=== PATIENT | female | born 1940 | race Asian ===

== ENCOUNTER 2018-07-08 06:58 | Inpatient (IN) | payer BC ==
[~2018-07-08] VITALS: Ht 157.5 cm; Wt 51.5 kg
[2018-07-08 07:11] VITALS: BP_SYST 154
--- NOTE | 2018-07-08 07:11 | NUR ---
Patient to ER bed 7 to gown for evaluation. Side rails up.
--- NOTE | 2018-07-08 07:15 | NUR ---
patient arrived AOx4 from home with c/o off and on abd pain and rectal bleeding x 1am this morning. patient has normal active bowel sounds and no abd pain with palpation. Patient denies n/v/d. Patient has never had this before. no other complaint or injury at this time.
--- NOTE | 2018-07-08 07:20 | NUR ---
ER at bedside examining patient.
--- NOTE | 2018-07-08 07:29 | NUR ---
Medication reconciliation completed with information provided by patient. Any prior medication reconciliation on file was reviewed and corrected.
--- NOTE | 2018-07-08 07:30 | NUR ---
patient sent to CT for scan in stable condition.
[2018-07-08] MEDS ORDERED: FERR325T22 PO (07:34)
[2018-07-08] MEDS ORDERED: LACT1CAP69 PO (07:34)
[2018-07-08] MEDS ORDERED: LOSA1TAB40 PO (07:34)
[2018-07-08] MEDS ORDERED: POTA8TAB4 PO (07:34)
[2018-07-08] MEDS ORDERED: SIMV10TA6 PO (07:34)
[2018-07-08] MEDS ORDERED: AMLO5TAB92 PO (07:34)
[2018-07-08 08:06] LABS: BASOPHILS % (AUTO) 0.7 % (0.0-2.0); EOSINOPHILS # (AUTO) 0.1 K/uL (0.0-0.4); EOSINOPHILS % (AUTO) 1.7 % (0.0-4.0); HEMATOCRIT 38.7 % (36-48); HEMOGLOBIN 12.5 g/dL (12.0-16.0); LYMPHOCYTES # (AUTO) 1.8 K/uL (1.0-5.5); LYMPHOCYTES % (AUTO) 36.1 % (20.5-51.5); MEAN CORPUSCULAR HEMOGLOBIN 28 pg (27-31); MEAN CORPUSCULAR HGB CONC 32 % (32-36); MEAN CORPUSCULAR VOLUME 86 fL (79.0-98.0); MONOCYTES # (AUTO) 0.3 K/uL (0.0-1.0); MONOCYTES % (AUTO) 6.2 % (1.7-9.3); NEUTROPHILS # (AUTO) 2.8 K/uL (1.8-7.7); NEUTROPHILS % (AUTO) 55.3 % (40.0-70.0); PLATELET COUNT (AUTO) 337 K/uL (130-430); RED BLOOD CELL COUNT(AUTO) 4.48 MIL/uL (4.2-6.2); RED CELL DISTRIBUTION WIDTH 16.9 % (9.0-15.0)
[2018-07-08 08:22] LABS: ANION GAP 6 (5-15); CHLORIDE 104 mmol/L (98-107); CREATININE 0.52 mg/dL (0.55-1.30); GLUCOSE 91 mg/dL (70-99); POTASSIUM 3.6 mmol/L (3.5-5.1); SODIUM SERUM 142 mmol/L (136-145); UREA NITROGEN, BLOOD 18 mg/dL (8-21)
[2018-07-08 08:28] LABS: ALANINE AMINOTRANSFERASE 16 U/L (12-78); ALBUMIN 3.3 g/dL (3.4-4.8); ASPARTATE AMINOTRANSFERASE 13 U/L (10-37); LIPASE 54 U/L (73-393); TOTAL BILIRUBIN 0.4 mg/dL (0.0-1.0)
[2018-07-08 08:33] LABS: INR 0.9 (0.8-1.2); PROTHROMBIN TIME 9.2 SECS (9.5-12.5)
--- NOTE | 2018-07-08 08:33 | NUR ---
patient returned to bed in stable condition.
[2018-07-08 08:49] LABS: BILIRUBIN,URINE NEGATIVE (NEGATIVE); BLOOD, URINE 2+ (NEGATIVE); CLARITY/URINE HAZY (CLEAR); COLOR,URINE YELLOW (YELLOW); GLUCOSE,URINE NEGATIVE (NEGATIVE); KETONES,URINE NEGATIVE (NEGATIVE); LEUKOCYTE ESTERASE ,URINE 3+ (NEGATIVE); NITRITE, URINE POSITIVE (NEGATIVE); PROTEIN URINE TRACE (NEGATIVE)
[2018-07-08] MEDS ORDERED: SULFAMETHOXAZOLE/TRIMETHOPR DS 1 TABLET PO ONE (09:00)
[2018-07-08 09:05] LABS: BACTERIA,URINE MANY /HPF (None Seen); WBC,URINE 20-50 /HPF (0-3)
[2018-07-08] MEDS ORDERED: MAGNESIUM CITRATE 300 ML ORAL SOLUTION PO ONE (09:15)
--- NOTE | 2018-07-08 09:39 | NUR ---
Patient will be admitted to [facility]. Admitted to Med/Surg unit. Will go to room 130A. Belongings list completed. Summary report printed. Report will be given at bedside.
[2018-07-08] MEDS ORDERED: PANTOPRAZOLE SODIUM 40 MG/VIAL (PROTONIX) IVP ONE (09:45)
--- NOTE | 2018-07-08 09:45 | NUR ---
ADMIT NOTE Received pt from ER to the floor with a diagnosis of GI BLEED. Admission process initiated. patient oriented to pain management, safety and call light-teach back done.
--- NOTE | 2018-07-08 10:00 | NUR ---
initial notes rec patient awake alert accompanied by daughter in law. ivl on the l ac intact. no infiltration noted. with on and off pain on the lower abdomen ,no bleeding noted so far. bed to the lowest position and side rails up and locked. call light within reached and knows when to call for assistance.
[2018-07-08 10:05] VITALS: BP_SYST 141
[2018-07-08] MEDS: NACL 0.9% 1,000 ML IV SCH ×2 (10:28→23:44)
[2018-07-08] MEDS ORDERED: VIT1TABL94 PO (10:31)
--- NOTE | 2018-07-08 10:43 | NUR ---
FAX [facility] Re: Medical disclosure info fax #[phone]
--- NOTE | 2018-07-08 11:37 | NUR ---
CONSULTATION PAGED/CALLED Reason for Consultation: GI BLEED Person Who was Notified: SPOKE WITH STARLA FROM [facility] Consulting Physician: SEGUNDO FLORES S Dormitory Maid Specialty: GI Ordering Physician:
[2018-07-08 12:58] VITALS: BP_SYST 137
--- NOTE | 2018-07-08 14:00 | NUR ---
rounds seen by dr garcia and with orders. resting comfortably . otherwise pt will call for assistance to the br.
[2018-07-08 14:27] LABS: HEMATOCRIT 35.5 % (36-48); HEMOGLOBIN 11.6 g/dL (12.0-16.0)
[2018-07-08 17:01] VITALS: BP_SYST 145
[2018-07-08] MEDS ORDERED: COMMUNICATION ORDER XX ONE (17:15)
[2018-07-08] MEDS ORDERED: BISACODYL 5 MG TABLET.DR (DULCOLAX) PO ONE (17:15)
--- NOTE | 2018-07-08 17:30 | NUR ---
rounds seen by dr alissa baird and order for colonoscopy in am.
[2018-07-08] MEDS ORDERED: GOLYTELY / COLYTE SOLUTION 4 LITERS PO ONE (18:00)
[2018-07-08 19:00] VITALS: BP_SYST 148
--- NOTE | 2018-07-08 19:00 | NUR ---
closing notes endorsed patient to mukesh zheng . for colonoscopy in am and instructed re npo and aware about it. bed to the lowestr position and side rails up and locked.call light within reached and knows when to call for assistance.
[2018-07-08 20:02] LABS: HEMATOCRIT 34.7 % (36-48); HEMOGLOBIN 11.3 g/dL (12.0-16.0)
--- NOTE | 2018-07-08 22:20 | NUR ---
Paged Dr. Clarke: Page Dr Clarke to let us know what time will be the colonoscopy tomorrow. Awaiting to call back.
--- NOTE | 2018-07-08 22:23 | NUR ---
PAGED PAGED DR. RAYMOND, SPOKE WITH IVAN.
--- NOTE | 2018-07-08 22:30 | NUR ---
Dr Rivera, production sanitizer for Dr Clarke called back: Dr. Rivera called back, asked him what time will be the colonoscopy tomorrow, stated at 0730. Coat Check Attendant made aware.
[2018-07-08] MEDS: PANTOPRAZOLE SODIUM 40 MG/VIAL (PROTONIX) IVP SCH (23:33)
[2018-07-08] MEDS: amLODIPine BESYLATE 5 MG TABLET PO SCH (23:34)
[2018-07-08 23:41] VITALS: BP_SYST 139
[2018-07-09 01:30] LABS: HEMATOCRIT 33.3 % (36-48)
--- NOTE | 2018-07-09 06:45 | NUR ---
pt.presents general status stable.respiratory status stable w/in the shift.pt.has submitted to the oral prep:golytely w/in the shift.pt.had presents multiple stools;pt.presented clear returns w/in the shift.pt.submitted to colonoscopy this am per . i witness the pt. sign the consent form.pt.presented general status stable.respiratory status stable.no c/o pain,nausea w/in the shift.abdomen discomfort soley.pt.capable to reposition self.pt.had utilized the bs to accomadate bm returns.call light/telephone w/in the reach of the pt.
[2018-07-09] MEDS ORDERED: SIMETHICONE 40 MG/0.6 ML ML ONE (06:50)
[2018-07-09] MEDS ORDERED: MIDAZOLAM HCL 5 MG/5 ML VIAL ONE (06:50)
[2018-07-09] MEDS: MIDAZOLAM HCL 5 MG/5 ML VIAL ONE ×2 (07:38→07:43)
[2018-07-09] MEDS: fentaNYL CITRATE/PF 100 MCG/2 ML AMP ONE ×2 (07:38→07:43)
--- NOTE | 2018-07-09 08:38 | NUR ---
RN Note Patient just returned from GI lab awake and in stable condition. Report received from [facility]y GI nurse.
[2018-07-09 08:40] LABS: HEMATOCRIT 35.9 % (36-48); HEMOGLOBIN 11.7 g/dL (12.0-16.0)
[2018-07-09 08:47] VITALS: BP_SYST 129
[2018-07-09] MEDS: PANTOPRAZOLE SODIUM 40 MG/VIAL (PROTONIX) IVP SCH (10:05)
[2018-07-09] MEDS: amLODIPine BESYLATE 5 MG TABLET PO SCH (10:05)
--- NOTE | 2018-07-09 10:32 | NUR ---
Rounds Patient is currently resting in bed. No signs of distress noted at the moment.
--- NOTE | 2018-07-09 12:41 | NUR ---
Rounds Patient tolerated her full liquid diet well. Does not report any abd pain or blood in the stool
[2018-07-09 12:53] VITALS: BP_SYST 124
[2018-07-09 13:37] LABS: HEMATOCRIT 37.9 % (36-48); HEMOGLOBIN 12.1 g/dL (12.0-16.0)
[2018-07-09] MEDS: NACL 0.9% 1,000 ML IV SCH (14:07)
--- NOTE | 2018-07-09 14:21 | NUR ---
Rounds Patient is resting in bed. Call light is within reach and bed is in the lowest position.
[2018-07-09 15:14] VITALS: BP_SYST 127
--- NOTE | 2018-07-09 16:00 | NUR ---
Transition of Care Note Patient given medication reconciliation form and D/C instructions. Exit Care provided. Patient verbalized understanding. MD discussed with patient the results and treatment provided. Ambulatory with steady gait for discharge to home. Patient in stable condition, ID band removed. IV catheter removed, intact and dressing applied, no active bleeding. Patient educated on pain management. All belongings sent with patient.
[2018-07-09 17:40] VITALS: BP_SYST 111
--- NOTE | 2018-07-14 14:40 | NUR ---
Discharge Follow Up Phone Call [employer] SPECIALIST phoned patient, . Patient stated she was doing okay. She has had a follow up appointment with her PCP, Dr Garza, on 07/13/18. She will follow up with Dr Abraham for biopsy results on 07/27/18. Patient had no questions or concerns.
== END 2018-07-09 16:00 | disposition home or self-care (01) | DRG 378 ==
LOC: SED 06:58 → SMU 09:31
PROVIDERS: ADMIT Internal Medicine Hospice and Palliative Medicine; ATTEND Internal Medicine Hospice and Palliative Medicine
PROC: 0DBN8ZX Excision of Sigmoid Colon, Via Natural or Artificial Opening Endoscopic, Diagnostic (ICD-10-PCS; principal; 2018-07-09 07:30)
DX: K57.31 Diverticulosis of large intestine without perforation or abscess with bleeding (principal); E44.1 Mild protein-calorie malnutrition; I10 Essential (primary) hypertension; K63.5 Polyp of colon; D64.9 Anemia, unspecified; Z85.048 Personal history of other malignant neoplasm of rectum, rectosigmoid junction, and anus; Z88.0 Allergy status to penicillin; Z79.899 Other long term (current) drug therapy; Z92.3 Personal history of irradiation
CPT/HCPCS: 36415; 45380; 71045; 80053; 81000-TC; 83605; 83690-TC; 85018-TC; 85025; 85610-TC; 87040-TC; 87086; 87186-TC; 88305; 93005; 99285; C9113; J2250; J3010; J7030

== ENCOUNTER 2019-01-24 18:20 | Inpatient (IN) | payer BC ==
[~2019-01-24] VITALS: Ht 157.5 cm; Wt 51.7 kg
[~2019-01-24 18:20] MED LIST: AMLO5TAB92 PO; FERR325T22 PO; LACT1CAP69 PO; LOSA1TAB40 PO; POTA8TAB4 PO; SIMV10TA6 PO; VIT1TABL94 PO
[2019-01-24 18:38] VITALS: BP_SYST 132
[2019-01-24 19:23] LABS: BASOPHILS % (AUTO) 0.8 % (0.0-2.0); EOSINOPHILS % (AUTO) 0.6 % (0.0-4.0); HEMATOCRIT 31.5 % (36-48); HEMOGLOBIN 10.3 g/dL (12.0-16.0); LYMPHOCYTES % (AUTO) 19.7 % (20.5-51.5); MEAN CORPUSCULAR HEMOGLOBIN 29 pg (27-31); MEAN CORPUSCULAR HGB CONC 33 % (32-36); MEAN CORPUSCULAR VOLUME 88 fL (79.0-98.0); MONOCYTES # (AUTO) 0.4 K/uL (0.0-1.0); MONOCYTES % (AUTO) 7.2 % (1.7-9.3); NEUTROPHILS # (AUTO) 3.7 K/uL (1.8-7.7); NEUTROPHILS % (AUTO) 71.7 % (40.0-70.0); PLATELET COUNT (AUTO) 486 K/uL (130-430); RED BLOOD CELL COUNT(AUTO) 3.58 MIL/uL (4.2-6.2); RED CELL DISTRIBUTION WIDTH 15.5 % (9.0-15.0); WHITE BLOOD COUNT (AUTO) 5.1 K/uL (4.8-10.8)
[2019-01-24 19:40] LABS: ANION GAP 5 (5-15); CHLORIDE 108 mmol/L (98-107); CREATININE 0.64 mg/dL (0.55-1.30); GLUCOSE 105 mg/dL (70-99); POTASSIUM 3.8 mmol/L (3.5-5.1); SODIUM SERUM 142 mmol/L (136-145); UREA NITROGEN, BLOOD 14 mg/dL (8-21)
[2019-01-24 19:41] LABS: PROTHROMBIN TIME 10.3 SECS (9.5-12.5)
[2019-01-24 19:45] LABS: ALANINE AMINOTRANSFERASE 18 U/L (12-78); ALBUMIN 2.8 g/dL (3.4-4.8); ASPARTATE AMINOTRANSFERASE 13 U/L (10-37); TOTAL BILIRUBIN 0.4 mg/dL (0.0-1.0)
[2019-01-24] MEDS ORDERED: MORPHINE 4 MG/ML INJ. SYRINGE IVP ONE ×2 (21:00→23:30)
[2019-01-24] MEDS ORDERED: ONDANSETRON HCL 4 MG/2 ML VIAL IVP ONE (21:30)
[2019-01-24] MEDS ORDERED: DIPHENHYDRAMINE INJ 50 MG/ML VIAL ONE (21:58)
[2019-01-24] MEDS ORDERED: DIPHENHYDRAMINE INJ 50 MG/ML VIAL IVP ONE (22:00)
[2019-01-25 00:56] VITALS: BP_SYST 137
[2019-01-25] MEDS: NACL 0.9% 1,000 ML IV SCH ×3 (01:42→14:04)
[2019-01-25] MEDS ORDERED: ACETAMINOPHEN 325 MG TABLET PO PRN (05:45)
[2019-01-25] MEDS ORDERED: ALBUTEROL SULFATE 0.083% 2.5 MG/3 ML VIAL.NEB INH PRN (05:45)
[2019-01-25] MEDS ORDERED: LORazepam 2 MG/ML VIAL IVP PRN (05:45)
[2019-01-25] MEDS ORDERED: MORPHINE 2 MG/ML INJ. SYRINGE IVP ONE (06:00)
[2019-01-25 06:13] LABS: BASOPHILS % (AUTO) 0.8 % (0.0-2.0); EOSINOPHILS # (AUTO) 0.1 K/uL (0.0-0.4); EOSINOPHILS % (AUTO) 1.8 % (0.0-4.0); HEMATOCRIT 28.7 % (36-48); HEMOGLOBIN 9.6 g/dL (12.0-16.0); LYMPHOCYTES # (AUTO) 1.3 K/uL (1.0-5.5); LYMPHOCYTES % (AUTO) 27.8 % (20.5-51.5); MEAN CORPUSCULAR HEMOGLOBIN 29 pg (27-31); MEAN CORPUSCULAR HGB CONC 34 % (32-36); MEAN CORPUSCULAR VOLUME 87 fL (79.0-98.0); MONOCYTES # (AUTO) 0.5 K/uL (0.0-1.0); MONOCYTES % (AUTO) 9.9 % (1.7-9.3); NEUTROPHILS # (AUTO) 2.9 K/uL (1.8-7.7); NEUTROPHILS % (AUTO) 59.7 % (40.0-70.0); PLATELET COUNT (AUTO) 400 K/uL (130-430); RED CELL DISTRIBUTION WIDTH 15.7 % (9.0-15.0); WHITE BLOOD COUNT (AUTO) 4.8 K/uL (4.8-10.8)
[2019-01-25 06:26] LABS: ALANINE AMINOTRANSFERASE 19 U/L (12-78); ALBUMIN 2.3 g/dL (3.4-4.8); ASPARTATE AMINOTRANSFERASE 11 U/L (10-37); CALCIUM 8.7 mg/dL (8.4-11.0); CHLORIDE 106 mmol/L (98-107); CREATININE 0.49 mg/dL (0.55-1.30); GLUCOSE 85 mg/dL (70-99); POTASSIUM 3.3 mmol/L (3.5-5.1); SODIUM SERUM 139 mmol/L (136-145); TOTAL BILIRUBIN 0.5 mg/dL (0.0-1.0); UREA NITROGEN, BLOOD 10 mg/dL (8-21)
[2019-01-25 06:32] LABS: ANION GAP < 3 (5-15)
[2019-01-25] MEDS: ONDANSETRON HCL 4 MG/2 ML VIAL IVP PRN (06:41)
[2019-01-25 08:00] VITALS: BP_SYST 136
[2019-01-25] MEDS: PANTOPRAZOLE SODIUM 40 MG/VIAL (PROTONIX) IVP SCH ×2 (08:52→21:55)
[2019-01-25] MEDS: amLODIPine BESYLATE 5 MG TABLET PO SCH ×2 (08:52→21:55)
[2019-01-25] MEDS ORDERED: PHENYLEPH/MINERAL OIL/PETROLAT 45 GM OINT.APPL TP PRN (10:00)
[2019-01-25 11:09] VITALS: BP_SYST 121
[2019-01-25 11:39] LABS: TOTAL IRON BIND. CAPACITY 185 ug/dL (250-450)
[2019-01-25] MEDS ORDERED: MENTHOL/ZINC OXIDE 113 GM OINT. TP PRN (14:15)
[2019-01-25 15:58] VITALS: BP_SYST 109
[2019-01-25 20:27] VITALS: BP_SYST 119
[2019-01-25] MEDS: MORPHINE 4 MG/ML INJ. SYRINGE IVP PRN (21:57)
[2019-01-25] MEDS: SIMVASTATIN 10 MG TABLET PO SCH (21:57)
[2019-01-26 00:40] VITALS: BP_SYST 91
[2019-01-26 04:07] LABS: FOLATE (FOLIC ACID) >20.0 ng/mL (>3.0)
[2019-01-26] MEDS: NACL 0.9% 1,000 ML IV SCH ×3 (05:55→22:05)
[2019-01-26 06:33] LABS: BASOPHILS % (AUTO) 0.7 % (0.0-2.0); EOSINOPHILS # (AUTO) 0.1 K/uL (0.0-0.4); EOSINOPHILS % (AUTO) 1.2 % (0.0-4.0); HEMATOCRIT 27.8 % (36-48); HEMOGLOBIN 9.3 g/dL (12.0-16.0); LYMPHOCYTES # (AUTO) 1.1 K/uL (1.0-5.5); LYMPHOCYTES % (AUTO) 20.8 % (20.5-51.5); MEAN CORPUSCULAR HEMOGLOBIN 29 pg (27-31); MEAN CORPUSCULAR HGB CONC 33 % (32-36); MEAN CORPUSCULAR VOLUME 87 fL (79.0-98.0); MONOCYTES # (AUTO) 0.5 K/uL (0.0-1.0); MONOCYTES % (AUTO) 8.3 % (1.7-9.3); NEUTROPHILS # (AUTO) 3.8 K/uL (1.8-7.7); PLATELET COUNT (AUTO) 373 K/uL (130-430); RED CELL DISTRIBUTION WIDTH 15.8 % (9.0-15.0); WHITE BLOOD COUNT (AUTO) 5.5 K/uL (4.8-10.8)
[2019-01-26 06:55] LABS: ALANINE AMINOTRANSFERASE 14 U/L (12-78); ALBUMIN 2.3 g/dL (3.4-4.8); ANION GAP 3 (5-15); ASPARTATE AMINOTRANSFERASE 9 U/L (10-37); CHLORIDE 105 mmol/L (98-107); CREATININE 0.59 mg/dL (0.55-1.30); GLUCOSE 83 mg/dL (70-99); POTASSIUM 3.5 mmol/L (3.5-5.1); SODIUM SERUM 140 mmol/L (136-145); TOTAL BILIRUBIN 0.3 mg/dL (0.0-1.0); UREA NITROGEN, BLOOD 9 mg/dL (8-21)
[2019-01-26] MEDS ORDERED: MIDAZOLAM HCL 5 MG/5 ML VIAL ONE (07:46)
[2019-01-26] MEDS ORDERED: MEPERIDINE HCL/PF 25 MG/ML DISP.SYRIN ONE ×3 (07:47→07:48)
[2019-01-26] MEDS ORDERED: SIMETHICONE 40 MG/0.6 ML ML ONE (07:48)
[2019-01-26] MEDS: MIDAZOLAM HCL 5 MG/5 ML VIAL ONE ×2 (08:36→08:40)
[2019-01-26] MEDS: amLODIPine BESYLATE 5 MG TABLET PO SCH ×2 (09:00→22:04)
[2019-01-26] MEDS: PANTOPRAZOLE SODIUM 40 MG/VIAL (PROTONIX) IVP SCH ×2 (09:50→22:05)
[2019-01-26 10:00] VITALS: BP_SYST 113
[2019-01-26 12:00] VITALS: BP_SYST 116
[2019-01-26 16:32] VITALS: BP_SYST 112
[2019-01-26] MEDS: MORPHINE 2 MG/ML INJ. SYRINGE IVP PRN (17:44)
[2019-01-26] MEDS: ONDANSETRON HCL 4 MG/2 ML VIAL IVP PRN ×2 (17:53→22:13)
[2019-01-26 20:10] VITALS: BP_SYST 119
[2019-01-26] MEDS: SIMVASTATIN 10 MG TABLET PO SCH (22:05)
[2019-01-26] MEDS: MORPHINE 4 MG/ML INJ. SYRINGE IVP PRN (22:14)
[2019-01-27 00:11] VITALS: BP_SYST 107
[2019-01-27 08:00] VITALS: BP_SYST 119
[2019-01-27] MEDS: PANTOPRAZOLE SODIUM 40 MG/VIAL (PROTONIX) IVP SCH (08:56)
[2019-01-27] MEDS: amLODIPine BESYLATE 5 MG TABLET PO SCH (08:58)
[2019-01-27] MEDS ORDERED: ELA10 PO (09:37)
[2019-01-27] MEDS: MORPHINE 2 MG/ML INJ. SYRINGE IVP PRN (10:51)
[2019-01-27] MEDS: ONDANSETRON HCL 4 MG/2 ML VIAL IVP PRN (10:51)
[2019-01-27 11:29] VITALS: BP_SYST 123
[2019-01-27 12:46] VITALS: BP_SYST 110
[2019-01-27 12:58] VITALS: BP_SYST 112
== END 2019-01-27 14:00 | disposition home or self-care (01) | DRG 392 ==
LOC: SED 18:20 → SMU 01-25 00:05
PROVIDERS: ADMIT Internal Medicine Hospice and Palliative Medicine; ATTEND Internal Medicine Hospice and Palliative Medicine
PROC: 0DB68ZX Excision of Stomach, Via Natural or Artificial Opening Endoscopic, Diagnostic (ICD-10-PCS; 2019-01-26)
PROC: 0DB98ZX Excision of Duodenum, Via Natural or Artificial Opening Endoscopic, Diagnostic (ICD-10-PCS; principal; 2019-01-26 08:00)
DX: K52.9 Noninfective gastroenteritis and colitis, unspecified (principal); E44.0 Moderate protein-calorie malnutrition; K44.9 Diaphragmatic hernia without obstruction or gangrene; K22.9 Disease of esophagus, unspecified; K62.89 Other specified diseases of anus and rectum; E78.5 Hyperlipidemia, unspecified; I10 Essential (primary) hypertension; Z82.49 Family history of ischemic heart disease and other diseases of the circulatory system; Z85.038 Personal history of other malignant neoplasm of large intestine
CPT/HCPCS: 36415; 43239; 80053; 82272; 82607; 82746; 83540-TC; 83550-TC; 85025; 85610-TC; 85730-TC; 86886; 86900; 86901; 87081; 88305; 88312; 88313; 93005; 96374; 96375; 99285; C9113; J1200; J2175; J2250; J2270; J2405; J7030

== ENCOUNTER 2019-06-22 18:20 | Inpatient (IN) | payer BC, MEDICAID ==
[~2019-06-22] VITALS: Ht 157.5 cm; Wt 55.1 kg
[~2019-06-22 18:20] MED LIST changes: +ELA10 PO
[2019-06-22] MEDS ORDERED: NACL 0.9% 1,000 ML IV ONE (18:37)
[2019-06-22] MEDS ORDERED: CHOL50006 PO (18:44)
[2019-06-22] MEDS ORDERED: ESOM40CA53 PO (18:44)
[2019-06-22] MEDS ORDERED: PROBIOTIC BLEN1 EACH PO (18:44)
[2019-06-22 18:45] VITALS: BP_SYST 105
[2019-06-22] MEDS ORDERED: ASPIRIN 81 MG TAB.CHEW PO ONE ×2 (18:45→20:30)
[2019-06-22] MEDS ORDERED: NITROGLYCERIN 1 INCH (GM) OINT. TP ONE (19:00)
[2019-06-22 19:10] LABS: BASOPHILS % (AUTO) 0.4 % (0.0-2.0); EOSINOPHILS % (AUTO) 0.1 % (0.0-4.0); HEMATOCRIT 36.1 % (36-48); HEMOGLOBIN 11.8 g/dL (12.0-16.0); LYMPHOCYTES # (AUTO) 1.8 K/uL (1.0-5.5); LYMPHOCYTES % (AUTO) 27.1 % (20.5-51.5); MEAN CORPUSCULAR HEMOGLOBIN 29 pg (27-31); MEAN CORPUSCULAR HGB CONC 33 % (32-36); MEAN CORPUSCULAR VOLUME 87 fL (79.0-98.0); MONOCYTES # (AUTO) 0.3 K/uL (0.0-1.0); MONOCYTES % (AUTO) 4.9 % (1.7-9.3); NEUTROPHILS # (AUTO) 4.4 K/uL (1.8-7.7); NEUTROPHILS % (AUTO) 67.5 % (40.0-70.0); PLATELET COUNT (AUTO) 264 K/uL (130-430); RED BLOOD CELL COUNT(AUTO) 4.13 MIL/uL (4.2-6.2); RED CELL DISTRIBUTION WIDTH 15.4 % (9.0-15.0); WHITE BLOOD COUNT (AUTO) 6.5 K/uL (4.8-10.8)
[2019-06-22] MEDS ORDERED: PANTOPRAZOLE SODIUM 40 MG/VIAL (PROTONIX) IVP ONE (19:15)
[2019-06-22] MEDS ORDERED: NS 500 ML IV ONE (19:15)
[2019-06-22 19:30] LABS: ANION GAP 8 (5-15); CALCIUM 8.9 mg/dL (8.4-11.0); CHLORIDE 102 mmol/L (98-107); CREATININE 0.91 mg/dL (0.55-1.30); GLUCOSE 198 mg/dL (70-99); POTASSIUM 3.5 mmol/L (3.5-5.1); SODIUM SERUM 140 mmol/L (136-145); UREA NITROGEN, BLOOD 28 mg/dL (8-21)
[2019-06-22 19:41] LABS: ALANINE AMINOTRANSFERASE 15 U/L (12-78); ALBUMIN 3.1 g/dL (3.4-4.8); ASPARTATE AMINOTRANSFERASE 20 U/L (10-37); TOTAL BILIRUBIN 0.3 mg/dL (0.0-1.0)
[2019-06-22] MEDS ORDERED: HEPARIN 25,000 UNITS/D5W 250ML 250 ML IV ONE (20:30)
[2019-06-22 20:42] LABS: PROTHROMBIN TIME 10.2 SECS (9.5-12.5)
[2019-06-22] MEDS ORDERED: MORPHINE 2 MG/ML INJ. SYRINGE IVP ONE (20:45)
[2019-06-22] MEDS ORDERED: ACETAMINOPHEN 325 MG TABLET PO PRN (21:00)
[2019-06-22] MEDS ORDERED: ALBUTEROL SULFATE 0.083% 2.5 MG/3 ML VIAL.NEB INH PRN (21:00)
[2019-06-22] MEDS ORDERED: MORPHINE 2 MG/ML INJ. SYRINGE IVP PRN (21:00)
[2019-06-22] MEDS ORDERED: HEPARIN SODIUM,PORCINE 5000 UNITS/ML VIAL ONE (22:03)
[2019-06-22] MEDS ORDERED: HEPARIN IV FLUSH 300 UNITS/3ML SYR INJ ONE (22:15)
[2019-06-22] MEDS ORDERED: *HEPARIN PER PHARMACY XX ONE ×2 (22:15→22:30)
[2019-06-22] MEDS ORDERED: HEPARIN SODIUM,PORCINE 2000 UNITS/0.4 ML BOLUS IVP PRN (23:15)
[2019-06-22] MEDS ORDERED: HEPARIN 25,000 UNITS in 250 ML PREMIX IV PRN (23:15)
[2019-06-22] MEDS ORDERED: HEPARIN SODIUM,PORCINE 3000 UNITS/0.6 ML BOLUS IVP PRN (23:15)
[2019-06-22 23:23] VITALS: BP_SYST 141
[2019-06-23 00:12] VITALS: BP_SYST 116
[2019-06-23 01:25] VITALS: BP_SYST 108
[2019-06-23] MEDS ORDERED: ETOMIDATE 20 MG/ 10 ML VIAL (AMIDATE) IVP ONE (04:07)
[2019-06-23] MEDS ORDERED: ROCURONIUM BROMIDE 10 MG/ML (ZEMURON) IV ONE (04:07)
[2019-06-23] MEDS ORDERED: CALCIUM CHLORIDE 1 GM/10 ML DISP.SYRIN (14 mEq Ca++/SYR) IV ONE (08:51)
[2019-06-23] MEDS ORDERED: SODIUM BICARBONATE 8.4% JECT 50 MEQ/50 ML SYRINGE IVP ONE (08:51)
[2019-06-23] MEDS ORDERED: EPINEPHrine JECT 0.1 MG/ML SYR IVP ONE (08:51)
[2019-06-23] MEDS ORDERED: amLODIPine BESYLATE 5 MG TABLET PO SCH (09:00)
[2019-06-23] MEDS ORDERED: ASPIRIN 325 MG TABLET PO SCH (09:00)
[2019-06-23] MEDS ORDERED: SIMVASTATIN 10 MG TABLET PO SCH (21:00)
[2019-06-23] MEDS ORDERED: AMITRIPTYLINE HCL 10 MG TABLET (ELAVIL) PO SCH (21:00)
== END 2019-06-23 04:08 | disposition expired ==
LOC: SED 18:20 → STU 20:32
PROVIDERS: ADMIT Internal Medicine Hospice and Palliative Medicine; ATTEND Internal Medicine Hospice and Palliative Medicine
PROC: 5A12012 Performance of Cardiac Output, Single, Manual (ICD-10-PCS; principal; 2019-06-22)
PROC: 0BH17EZ Insertion of Endotracheal Airway into Trachea, Via Natural or Artificial Opening (ICD-10-PCS; 2019-06-22)
DX: I21.4 Non-ST elevation (NSTEMI) myocardial infarction (principal); D63.8 Anemia in other chronic diseases classified elsewhere; I46.9 Cardiac arrest, cause unspecified; I10 Essential (primary) hypertension; I49.01 Ventricular fibrillation; I24.9 Acute ischemic heart disease, unspecified; R73.9 Hyperglycemia, unspecified; Z82.49 Family history of ischemic heart disease and other diseases of the circulatory system; Z85.038 Personal history of other malignant neoplasm of large intestine; Z79.899 Other long term (current) drug therapy; Z88.0 Allergy status to penicillin; Z88.8 Allergy status to other drugs, medicaments and biological substances
CPT/HCPCS: 36415; 71045; 80053; 84484; 85025; 85610-TC; 85730-TC; 92950; 93005; 96361; 96374; 96375; 99291; C9113; G0378; J0171; J1644; J2270; J3490